=== PATIENT | male | born 1980 | race Caucasian/White ===

== ENCOUNTER 2019-05-19 12:27 | Emergency (ER) | payer SELFPAY ==
[2019-05-19 12:36] VITALS: BP 136/82; PULSE 68; RESP 18; TEMP 36.3; O2SAT 97
--- NOTE | 2019-05-19 13:07 | ED.URI ---
HPI - URI/Sore Throat General Chief Complaint: Upper Respiratory Infection Stated Complaint: Fever Time Seen by Provider: 05/19/19 13:00 Source: patient and RN notes reviewed Mode of arrival: ambulatory History of Present Illness HPI Narrative: Patient presents today with a fever of 101, intermittent cough, body aches, chills, headache. Symptoms began last night. States he took some Advil without relief. Had to call into work today and needs a note to return. MD elicited complaint: fever Related Data Home Medications Medication Instructions Recorded Confirmed No Home Medications 05/19/19 05/19/19 Allergies Allergy/AdvReac Type Severity Reaction Status Date / Time No Known Allergies Allergy Verified 09/21/17 12:21 Review of Systems Review of Systems: Narrative: CONSTITUTIONAL:+ Body aches, fatigue, chills, sweats, fever EYES: Denies visual changes, redness, or discharge. ENT: Denies rhinorrhea, congestion, sore throat, or otalgia. CARDIOVASCULAR: Denies chest pain, palpitations, or edema. RESPIRATORY: Denies cough or dyspnea. GASTROINTESTINAL: Denies abdominal pain, nausea, vomiting, or diarrhea. GENITOURINARY: Denies dysuria or hematuria. SKIN: Denies rash, itching, or wounds. MUSCULOSKELETAL: Denies back pain, joint pain, or myalgia. NEUROLOGIC: Denies numbness, tingling, or weakness.+ Headache PSYCH: Denies depression or anxiety. [facility] Family History Family History (Updated 09/16/16 @ 15:00 by DOCTOR UNKNOWN) Father Hypertension Family history of coronary artery disease Social History Social History Smoking status: Former smoker Smoking end date: 03/01/12 Alcohol intake: never Comments At time of signature, I have reviewed and agree with nursing past medical, surgical, social and family history unless otherwise noted. Please see nursing chart for further information. There is no relevant family history pertinent to the presenting complaint Exam Narrative: Exam Narrative: GENERAL: Mildly ill-appearing, well-nourished, and in no acute distress. HEAD: Normocephalic, atraumatic. EYES: EOMI. No redness or drainage. Conjunctivae normal. ENT: Mucous membranes pink and moist. Nares clear. No rhinorrhea. TMs normal bilaterally. Throat normal. Uvula midline. NECK: Normal AROM. Supple. No lymphadenopathy. CHEST: No respiratory distress. Clear to auscultation. HEART: Regular rate and rhythm. No murmur appreciated. Normal peripheral pulses. EXTREMITIES: Normal range of motion. No edema. SKIN: Warm, dry, no rash. NEURO: No focal deficits. Alert and oriented x3. Gait steady. PSYCH: Normal affect. No signs of depression or anxiety. Course Vital Signs Vital signs: Vital Signs Temperature 97.3 F L 05/19/19 12:36 Pulse Rate 68 05/19/19 12:36 Respiratory Rate 18 05/19/19 12:36 Blood Pressure 136/82 05/19/19 12:36 Pulse Oximetry 97 05/19/19 12:36 Temperature 97.3 F L 05/19/19 12:36 Pulse Rate 68 05/19/19 12:36 Respiratory Rate 18 05/19/19 12:36 Blood Pressure 136/82 05/19/19 12:36 Pulse Oximetry 97 05/19/19 12:36 Reviewed. Pt has been instructed to follow up with his PCP regarding his elevated blood pressure today. MDM - URI/Sore Throat Differential Diagnosis Differential diagnosis: Likely upper respiratory infection, otitis media, viral infection, influenza and other (COVID-19) Lab Data Attestation: I reviewed the patient's lab results. Labs: Influenza A Screen Negative Reference Range: Negative Influenza B Screen Negative Reference Range: Negative Critical Care Time Critical Care Time Critical Care Time: No Discharge Plan Discharge Clinical Impression: Viral syndrome Patient Disposition: Home, Self-Care Condition: Stable Instructions: Viral Syndrome (ED) Additional Instructions: Your influenza swab is negative today. Based on your current symptoms, it is recommended that you qu
== END 2019-05-19 13:35 | disposition home or self-care (01) ==
PROVIDERS: Emergency Provider Nurse Practitioner
DX: B34.9 Viral infection, unspecified (principal); Z87.891 Personal history of nicotine dependence; E03.9 Hypothyroidism, unspecified
CPT/HCPCS: 87804; 99212; G0463

== ENCOUNTER 2019-06-26 11:57 | Emergency (ER) | payer BC, SELFPAY ==
[2019-06-26 12:06] VITALS: BP 153/80; PULSE 63; RESP 16; TEMP 36.6; O2SAT 98
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
== END 2019-06-26 12:34 | disposition home or self-care (01) ==
PROVIDERS: Emergency Provider Nurse Practitioner
DX: M54.2 Cervicalgia (principal)
CPT/HCPCS: 99213; G0463

== ENCOUNTER 2019-07-05 07:33 | Emergency (ER) | payer BC, SELFPAY ==
--- NOTE | ~2019-07-05 | XR_ITS ---
EXAMINATION:[id number] DATE: 07/05/2019 08:15 INDICATION: Lower neck pain radiating to the bilateral arms. TECHNIQUE: AP, lateral, and odontoid views of the cervical spine are provided. COMPARISON: 12/26/2007 FINDINGS: Alignment is normal. Odontoid is intact. Normal atlantoaxial interval. Vertebral body heights are no rmal. Mild disc height loss at C6-C7. Multilevel mild uncovertebral osteoarthritis throughout the cer vical spine. Mild to moderate facet osteoarthritis at C7-T1 with additional mild osteoarthritis at th e more cephalad cervical facet joints.. Prevertebral soft tissues are normal. Visualized apices of l ungs are clear. IMPRESSION: 1. Mild cervical spondylosis. Reviewed, dictated and finalized at location A.
[2019-07-05 07:37] VITALS: BP 146/86; PULSE 68; RESP 18; TEMP 36.1; O2SAT 98
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
[2019-07-05] MEDS: KETOROLAC (*BKC) 60 MG/2 ML VIAL IM (08:22)
[2019-07-05 09:41] VITALS: BP 133/84; PULSE 59; RESP 16; O2SAT 98
== END 2019-07-05 09:42 | disposition home or self-care (01) ==
PROVIDERS: Emergency Provider Emergency Medicine
DX: M47.22 Other spondylosis with radiculopathy, cervical region (principal); F17.290 Nicotine dependence, other tobacco product, uncomplicated
CPT/HCPCS: 72040; 73140; 96372; 99284; J1885